=== PATIENT | male | born 1955 | race Caucasian/White ===

== ENCOUNTER 2016-09-11 09:58 | Emergency (ER) | payer OTHER ==
[2016-09-11 10:43] VITALS: BP 119/71
[2016-09-11] MEDS ORDERED: Tetan/Diph/Pertus SYR(Tdap)* 0.5 ML SYR(BOOSTRIX) use SYR IM ONE (11:54)
--- NOTE | 2016-09-11 11:55 | UC ---
Skin Complaint HPI - HPI Summary HPI Summary: The patient comes in today for: 1. Right elbow redness, swelling and tenderness: Onset: 10 days ago. The swelling "just popped up over night." It was not red at that time. Palliative/provocative: Touching does not affect it. Quality: No pain. Region: Right elbow. Severity: 0/10 Time: Constant. Associated symptoms: Home treatment: He burned a "hat needle" over the stove and poked the swelling. He initially did this about one week ago. He did a second time about 5 days ago. Each time he got fluid out which was "a light green." Fevers: None Injury: He states that he "beats around all the time." He does not remember any particular injury that precipitated this. Tetanus; He does not know when his last one was. The patient states that he had rectal bleeding at one time and at that time, he was told to not use blood thinners. He has ever since refused to take any NSAIDS. * - History of Current Complaint Chief Complaint: UCUpperExtremity Time Seen by Provider: 09/11/16 11:48 Stated Complaint: RED SWOLLEN ELBOW Hx Obtained From: Patient - Allergy/Home Medications Allergies/Adverse Reactions: Allergies Allergy/AdvReac Type Severity Reaction Status Date / Time No Known Allergies Allergy Verified 09/11/16 10:30 Home Medications: Home Medications Albuterol HFA INHALER* [Ventolin HFA Inhaler*] 2 puff PRN 09/11/16 [History] Budesonide/Formote 80/4.5(NF) [Symbicort 80/4.5 (NF)] 2 puff BID 09/11/16 [ History Confirmed 09/11/16] Hydrochlorothiazide TAB* [Hydrodiuril TAB*] 12.5 mg QPM 09/11/16 [History Confirmed 09/11/16] Tiotropium CAP.INH* [Spiriva CAP.INH*] 1 cap QPM 09/11/16 [History Confirmed ] Review of Systems Constitutional: Negative Skin: Rash Eyes: Negative ENT: Negative Respiratory: Negative Cardiovascular: Negative Gastrointestinal: Negative Genitourinary: Negative All Other Systems Reviewed And Are Negative: Yes PMH/Surg Hx/FS Hx/Imm Hx Previously Healthy: No - Chronic pain of the back and shoulder. Pt states that he does not take NSAI Endocrine History Of: Denies: Diabetes, Thyroid Disease, Hyperthyroidism, Hypothyroidism, Dyslipidemia Cardiovascular History Of: Reports: Hypertension - CONTROL WITH MED Denies: Cardiac Disorders, Pacemaker/ICD, Myocardial Infarction, Congestive Heart Failure, Atrial Fibrillation, Deep Vein Thrombosis, Bleeding Disorders Respiratory History Of: Reports: COPD Denies: Asthma, Bronchitis, Pneumonia, Pulmonary Embolism GI/ History Of: Denies: Gastroesophageal Reflux, Ulcer, Gastrointestinal Bleed, Gall Bladder Disease, Kidney Stones, Diverticulitis, Renal Disease, Urosepsis Neurological History Of: Denies: TIA, CVA, Dementia, Seizures, Migraine Psychological History Of: Denies: Anxiety, Depression, Bipolar Disorder, Schizophrenia, Post Traumatic Stress Disorder Cancer History Of: Denies: Lung Cancer, Colorectal Cancer, Breast Cancer, Prostate Cancer, Cervical Cancer Other History Of: Negative For: HIV, Hepatitis B, Hepatitis C, Anticoagulant Therapy - Surgical History Surgical History: Yes Surgery Procedure, Year, and Place: 2 surgeries on rectum one for a cyst,1973, also one year later for a fistula. surgery on foot when 12. Lt SHOULDER - ROTATOR CUFF- 10/20/12. Lt ANKLE - REPAIR/FX - W/ PIN PLACED & REMOVED - MANY YRS AGO - Family History Known Family History: Positive: Hypertension, Diabetes Negative: Cardiac Disease - Social History Occupation: Employed Part-time Alcohol Use: None Substance Use Type: Prescribed Smoking Status (MU): Heavy Every Day Tobacco Smoker Type: Cigarettes Amount Used/How Often: 1 PPD Length of Time of Smoking/Using Tobacco: 50 YEARS Have You Smoked in the Last Year: Yes Household Exposure Type: Cigarettes - Immunization History Most Recent Influenza Vaccination: Never Physical Exam Triage Information Reviewed: Yes Appearance: Well-Appearing, No Pain Distress, Well-Nourished Vital Signs: Initial Vital Signs Temp 97.8 F 09/11/16 10:35 Pulse 68 09/11/16 10:35 Resp 18 09/11/16 10:35 BP 119/71 09/11/16 10:35 Pulse Ox 98 09/11/16 10:35 Vital Signs Reviewed: Yes Eyes: Positive: Conjunctiva Clear. Negative: Discharge ENT: Positive: Hearing grossly normal. Negative: Pharyngeal erythema, Nasal congestion, Nasal drainage, TM bulging, TM dull, TM red, Tonsillar swelling, Tonsillar exudate Dental: Negative: Gross Decay/Caries @, Dental Fracture @ Neck: Negative: Supple, Nontender, No Lymphadenopathy, Nuchal Rigidity Respiratory: Positive: Lungs clear, No respiratory distress, No accessory muscle use. Negative: Crackles, Wheezing Cardiovascular: Positive: RRR, No Murmur Abdomen Description: Positive: Nontender, No Organomegaly, Soft. Negative: Distended, Guarding Musculoskeletal: Positive: Strength Intact, ROM Intact, Other: - Right elbow: Olecranon bursa with effusion. No tenderness, but it is warm and red. The puncture sites is present and scabbed. Neurological: Positive: Alert, Muscle Tone Normal Psychological: Positive: Age Appropriate Behavior, Consolable Skin: Negative: rashes, breakdown Diagnostics - Laboratory Diagnostic Studies Completed/Ordered: The fluid coming out of the right olecranon bursa was not purulent appearing--but straw-colored. Course/Dx - Course Course Of Treatment: After performing a time out, the patient had less than 1 cc of 2% lidocaine with epi instilled in the skin overlying the right olecranon bursa. It was cleansed x 3 with betadiene and with an 18 guage needle and 30 cc syringe, the olcranon bursa was drained. It had a steril Telfa pad and guaze applied with Coban. The fluid was sent for culture. - Differential Diagnoses - Skin Complaint Differential Diagnoses: Cellulitis, Eczema - Diagnoses Provider Diagnoses: Right olecranon bursitis (rule out infected) Discharge - Discharge Plan Condition: Stable Disposition: HOME Patient Education Materials: Elbow Bursitis (ED) Referrals: Jay Chu MD [Primary Care Provider] - 1 Week (Please contact your primary care provider's office as soon as you get out today for an appointment early next week to see how well you are doing. Keep the compressive bandage on as long as you can--preferablly until you see your primary care provider. Avoid injury to this elbow. If you have any increasing problems (swelling, redness, tenderness, fever), please be seen at that time through your family doctor, us or the ER.) Additional Instructions: Take the antibiotic until gone or told that the culture was negative. Call our office in 3 days to check on the culture. If the final report is normal, you may stop the antibiotics.
[2016-09-11] MEDS ORDERED: Lidocaine 2% W/EPI 1:100,000* 20 ML MDV ONE (12:13)
== END 2016-09-11 13:20 | disposition home or self-care (01) ==
LOC: UCEAST 09:58
DX: M70.21 Olecranon bursitis, right elbow (principal); F17.210 Nicotine dependence, cigarettes, uncomplicated; I10 Essential (primary) hypertension; J44.9 Chronic obstructive pulmonary disease, unspecified; Z23 Encounter for immunization
CPT/HCPCS: 20605; 87070; 87205; 90471; 90715; 99212; G0463

== ENCOUNTER 2016-09-13 08:50 | Emergency (ER) | payer OTHER ==
[2016-09-13 09:14] VITALS: BP 118/69
--- NOTE | 2016-09-13 09:37 | RAD ---
INDICATION: Olecranon bursitis COMPARISON: None TECHNIQUE: AP, lateral, and oblique views were obtained. FINDINGS: There are no acute osseous findings. There is prominent soft tissue density in the region of olecranon bursa compatible with olecranon bursitis.. IMPRESSION: OLECRANON BURSITIS
--- NOTE | 2016-09-13 13:02 | UC ---
Caleb Correa Matthew, [facility] on 09/13/16 at 1025 . Elbow Pain - HPI Summary HPI Summary: Nurse's Note: Right elbow complaint. Elbow effusion x 2 weeks, had the elbow drained and given Keflex 500mg BID, felt the elbow, "start swelling," again last night. Reports right hand/arm numbness. Patient reports pain on both sides of the elbow. Patient does have ROM in the right elbow. Note: Vital signs stable, Temp 98, pulse oxygen 100%, 5/10 pain when flexing and bending, distal numbness and tingling, no alcohol, heavy smoker. On 09/11, culture no growth after one day. The patient is on Keflex. In Room Note: A 60 y/o male presents to [facility] with right elbow pain since 2 weeks ago. The patient was seen two days ago in [facility] and had the elbow drained. At that time, he was started on 500mg Keflex BID. Last night, the elbow began to swell again. Associated symptoms include erythema, swelling, and distal numbness. The pain is worse with flexing and bending of the elbow. The patient drained the effusion twice on his own with a hat needle, which alleviated the pain. The pain is similar in intensity and erythema to his previous visit. The patient last saw his PCP in July. He has been hospitalized in the past for respiratory related complaints. The patient is a hammond and right hand dominate. FHx of Diabetes. The patient's on 30mg of oxycodone for shoulder pain control. - History of Current Complaint Chief Complaint: UCUpperExtremity Stated Complaint: RT ELBOW COMPLAINT Time Seen by Provider: 09/13/16 09:17 Hx Obtained From: Patient Onset/Duration: Weeks, Atraumatic, Still Present Severity Initially: Moderate Severity Currently: Moderate Pain Intensity: 5 Pain Scale Used: 0-10 Numeric Location Of Pain: Is Discrete @ - RT elbow Aggravating Factor(s): Movement Associated Signs And Symptoms: Positive: Swelling, Redness, Numbness/Tingling - distally - Allergies/Home Medications Allergies/Adverse Reactions: Allergies Allergy/AdvReac Type Severity Reaction Status Date / Time No Known Allergies Allergy Verified 09/11/16 10:30 PMH/Surg Hx/FS Hx/Imm Hx Endocrine History Of: Denies: Diabetes, Thyroid Disease, Hyperthyroidism, Hypothyroidism, Dyslipidemia Cardiovascular History Of: Reports: Hypertension - CONTROL WITH MED Denies: Cardiac Disorders, Pacemaker/ICD, Myocardial Infarction, Congestive Heart Failure, Atrial Fibrillation, Deep Vein Thrombosis, Bleeding Disorders Respiratory History Of: Reports: COPD Denies: Asthma, Bronchitis, Pneumonia, Pulmonary Embolism GI/ History Of: Denies: Gastroesophageal Reflux, Ulcer, Gastrointestinal Bleed, Gall Bladder Disease, Kidney Stones, Diverticulitis, Renal Disease, Urosepsis Neurological History Of: Denies: TIA, CVA, Dementia, Seizures, Migraine Psychological History Of: Denies: Anxiety, Depression, Bipolar Disorder, Schizophrenia, Post Traumatic Stress Disorder Cancer History Of: Denies: Lung Cancer, Colorectal Cancer, Breast Cancer, Prostate Cancer, Cervical Cancer Other History Of: Negative For: HIV, Hepatitis B, Hepatitis C, Anticoagulant Therapy - Surgical History Surgical History: Yes Surgery Procedure, Year, and Place: 2 surgeries on rectum one for a cyst,1973, also one year later for a fistula. surgery on foot when 12. Lt SHOULDER - ROTATOR CUFF- 10/20/12. Lt ANKLE - REPAIR/FX - W/ PIN PLACED & REMOVED - MANY YRS AGO - Family History Known Family History: Positive: Hypertension, Diabetes Negative: Cardiac Disease - Social History Alcohol Use: None Substance Use Type: None Smoking Status (MU): Heavy Every Day Tobacco Smoker Type: Cigarettes Amount Used/How Often: 1 PPD Length of Time of Smoking/Using Tobacco: 50 YEARS Have You Smoked in the Last Year: Yes Household Exposure Type: Cigarettes - Immunization History Most Recent Influenza Vaccination: Never Review of Systems Constitutional: Negative Skin: Other - erythema at the elbow Eyes: Negative ENT: Negative Respiratory: Negative Cardiovascular: Negative Gastrointestinal: Negative Genitourinary: Negative Motor: Negative Neurovascular: Negative Musculoskeletal: Arthralgia - right elbow, Edema, Myalgia - bilateral shoulder pain from previous rotator cuff injuries Neurological: Numbness - distal of the right elbow Psychological: Negative All Other Systems Reviewed And Are Negative: Yes Physical Exam Triage Information Reviewed: Yes Appearance: Well-Appearing, No Pain Distress, Well-Nourished Vital Signs: Initial Vital Signs Temp 98 F 09/13/16 09:04 Pulse 94 09/13/16 09:04 Resp 18 09/13/16 09:04 BP 118/69 09/13/16 09:04 Pulse Ox 100 09/13/16 09:04 Vital Signs Reviewed: Yes Eyes: Positive: Conjunctiva Clear ENT: Positive: Hearing grossly normal, Pharynx normal, TMs normal. Negative: Muffled/hoarse voice Neck: Positive: Supple, Nontender Respiratory: Positive: Chest non-tender, No respiratory distress, Other: - Distant breath sounds Cardiovascular: Positive: RRR, No Murmur Abdomen Description: Positive: Nontender, Soft Bowel Sounds: Positive: Present Musculoskeletal: Positive: Other: - GOLF BALL SIZED AREA OF BURSITIS, WHICH IS ERYTHEMATOUS; no obvious ascending cellulitis or lymphangitis; good circulation ; sensory and motor sensation distally intact; both shoulders are painful with movement from rotator cuff injuries Neurological: Positive: Muscle Tone Normal Psychological: Positive: Age Appropriate Behavior Diagnostics - Radiology RT Elbow XR Xray Interpretation: Positive (See Comments) - IMPRESSION: OLECRANON BURSITIS Radiology Interpretation Completed By: Radiologist Elbow Pain Course/Dx - Differential Dx/Diagnosis Provider Diagnoses: olecronon bursitis, right elbow. after one day: culture negative Discharge - Discharge Plan Condition: Stable Disposition: HOME Patient Education Materials: Elbow Bursitis Exercises (GEN), Elbow Bursitis (ED ) Referrals: Jay Chu MD [Primary Care Provider] - Additional Instructions: WE DISCUSSED: You have bursitis over the tip of your elbow. So far there are no signs of infection inside the area of swelling. Continue taking the Keflex. Warm moist heat to area for 5-10 minutes 8 times a day. Antibiotic cream to area. Teddy wrap. Re check with your doctor next week. First, let's get rid of the redness; then we will deal with the swelling that keeps coming back. The documentation as recorded by the Caleb estevez Matthew accurately reflects the service I personally performed and the decisions made by me, Mekhi Dao MD.
== END 2016-09-13 10:50 | disposition home or self-care (01) ==
LOC: UCEAST 08:50
DX: M70.21 Olecranon bursitis, right elbow (principal); F17.290 Nicotine dependence, other tobacco product, uncomplicated
CPT/HCPCS: 99212; G0463

== ENCOUNTER 2017-06-21 11:43 | Emergency (ER) | payer BC, OTHER ==
[2017-06-21 12:23] VITALS: BP 137/61
[2017-06-21] MEDS ORDERED: Albuterol/Ipratropium NEB.SOL* Albuterol 2.5 MG/Ipratropium 0.5 MG 3 ML INH ONE (12:46)
--- NOTE | 2017-06-21 14:26 | UC ---
Throat Pain/Nasal Beto HPI - HPI Summary HPI Summary: FOUR DAYS OF PRODUCTIVE COUGH, FEVER, SINUS PRESSURE AND CONGESTION. - History of Current Complaint Chief Complaint: UCGeneralIllness Stated Complaint: URI Time Seen by Provider: 06/21/17 12:38 Hx Obtained From: Patient Onset/Duration: Gradual Onset, Lasting Days Severity: Moderate Pain Intensity: 0 Pain Scale Used: 0-10 Numeric - Allergies/Home Medications Allergies/Adverse Reactions: Allergies Allergy/AdvReac Type Severity Reaction Status Date / Time No Known Allergies Allergy Verified 06/21/17 12:14 PMH/Surg Hx/FS Hx/Imm Hx Previously Healthy: Yes Other History Of: Negative For: HIV, Hepatitis B, Hepatitis C, Anticoagulant Therapy - Surgical History Surgical History: Yes Surgery Procedure, Year, and Place: 2 surgeries on rectum one for a cyst,1973, also one year later for a fistula. surgery on foot when 12. Lt SHOULDER - ROTATOR CUFF- 10/20/12. Lt ANKLE - REPAIR/FX - W/ PIN PLACED & REMOVED - MANY YRS AGO - Family History Known Family History: Positive: Hypertension, Diabetes Negative: Cardiac Disease - Social History Occupation: Employed Full-time Lives: With Family Alcohol Use: None Substance Use Type: None Smoking Status (MU): Heavy Every Day Tobacco Smoker Type: Cigarettes Amount Used/How Often: 1 PPD Length of Time of Smoking/Using Tobacco: 50 YEARS Have You Smoked in the Last Year: Yes Household Exposure Type: Cigarettes Cessation Counseling: Patient Advised to Stop - Immunization History Most Recent Influenza Vaccination: Never Review of Systems Constitutional: Fever Skin: Negative Eyes: Negative ENT: Sinus Congestion Respiratory: Cough Cardiovascular: Negative Gastrointestinal: Negative Genitourinary: Negative Motor: Negative Neurovascular: Negative Musculoskeletal: Negative Neurological: Negative Psychological: Negative Is Patient Immunocompromised?: No All Other Systems Reviewed And Are Negative: Yes Physical Exam Triage Information Reviewed: Yes Appearance: Well-Appearing, No Pain Distress, Well-Nourished Vital Signs: Initial Vital Signs Temp 99.9 F 06/21/17 12:10 Pulse 80 06/21/17 12:10 Resp 18 06/21/17 12:10 BP 137/61 06/21/17 12:10 Pulse Ox 97 06/21/17 12:10 Vital Signs Reviewed: Yes Eye Exam: Normal ENT: Positive: Nasal congestion, Nasal drainage Dental Exam: Normal Neck exam: Normal Respiratory Exam: Other - COUGH Respiratory: Positive: Chest non-tender, Lungs clear, Normal breath sounds, No respiratory distress, No accessory muscle use Cardiovascular Exam: Normal Cardiovascular: Positive: RRR, No Murmur, Pulses Normal Abdominal Exam: Normal Abdomen Description: Positive: Nontender, No Organomegaly Musculoskeletal Exam: Normal Musculoskeletal: Positive: Strength Intact, ROM Intact Neurological Exam: Normal Psychological Exam: Normal Skin Exam: Normal Throat Pain/Nasal Course/Dx - Differential Dx/Diagnosis Differential Diagnosis/HQI/PQRI: Sinusitis, URI Provider Diagnoses: SINUSITIS; BRONCHITIS Discharge - Discharge Plan Condition: Stable Disposition: HOME Prescriptions: DOXYcycline CAP(*) [DOXYcycline 100MG CAP(*)] 100 mg PO BID #20 cap Patient Education Materials: Sinusitis (ED), Acute Bronchitis (ED) Referrals: Jay Chu MD [Primary Care Provider] -
== END 2017-06-21 13:30 | disposition home or self-care (01) ==
LOC: UCEAST 11:43
DX: J32.9 Chronic sinusitis, unspecified (principal); J40 Bronchitis, not specified as acute or chronic; F17.210 Nicotine dependence, cigarettes, uncomplicated
CPT/HCPCS: 99212; A9270-GY; G0463

== ENCOUNTER 2017-06-30 09:55 | Emergency (ER) | payer OTHER ==
--- NOTE | 2017-06-30 11:01 | UC ---
Respiratory Complaint HPI - HPI Summary HPI Summary: Pt presents with sinus congestion, cough, and chest congestion. He was seen here on 06/20 for sinus symptoms and a mild cough at that time. He was prescribed doxycycline and has taken it for 10 days without any relief of his symptoms. Today he tells me that his sinus congestion/pain/pressure are still present and his cough has worsened. He is now coughing more and has a productive sputum of green and yellow color. Denies fever, chills, SOB, chest pain, ST, abdominal pain, N/V/D/C - History of Current Complaint Chief Complaint: UCRespiratory Stated Complaint: BRONCHITIS Time Seen by Provider: 06/30/17 10:59 Hx Obtained From: Patient Onset/Duration: Gradual Onset Timing: Constant Severity Initially: Mild Severity Currently: Moderate Alleviating Factors: Bronchodilator - Allergies/Home Medications Allergies/Adverse Reactions: Allergies Allergy/AdvReac Type Severity Reaction Status Date / Time No Known Allergies Allergy Verified 06/30/17 10:10 PMH/Surg Hx/FS Hx/Imm Hx Previously Healthy: Yes Cardiovascular History: Hypertension Respiratory History: COPD Other History Of: Negative For: HIV, Hepatitis B, Hepatitis C, Anticoagulant Therapy - Surgical History Surgical History: Yes Surgery Procedure, Year, and Place: 2 surgeries on rectum one for a cyst,1973, also one year later for a fistula. surgery on foot when 12. Lt SHOULDER - ROTATOR CUFF- 10/20/12. Lt ANKLE - REPAIR/FX - W/ PIN PLACED & REMOVED - MANY YRS AGO - Family History Known Family History: Positive: Hypertension, Diabetes Negative: Cardiac Disease - Social History Lives: With Family Alcohol Use: None Substance Use Type: None Smoking Status (MU): Heavy Every Day Tobacco Smoker Type: Cigarettes Amount Used/How Often: 1 PPD Length of Time of Smoking/Using Tobacco: 50 YEARS Have You Smoked in the Last Year: Yes Household Exposure Type: Cigarettes Cessation Counseling: Counseled 3+Min - 10 Min - Immunization History Most Recent Influenza Vaccination: NOT UTD Review of Systems Constitutional: Negative Skin: Negative Eyes: Negative ENT: Nasal Discharge, Sinus Congestion, Sinus Pain/Tenderness Respiratory: Cough Cardiovascular: Negative Gastrointestinal: Negative All Other Systems Reviewed And Are Negative: Yes Physical Exam Triage Information Reviewed: Yes Appearance: Well-Appearing, Well-Nourished Vital Signs: Initial Vital Signs Temp 98.7 F 06/30/17 10:06 Pulse 82 06/30/17 10:06 Resp 20 06/30/17 10:06 BP 131/73 06/30/17 10:06 Pulse Ox 97 06/30/17 10:06 Vital Signs Reviewed: Yes Eyes: Positive: Conjunctiva Clear. Negative: Conjunctiva Inflamed, Discharge ENT: Positive: Hearing grossly normal, Pharynx normal, Nasal congestion, Nasal drainage, TMs normal, Sinus tenderness, Uvula midline. Negative: Pharyngeal erythema, TM bulging, TM dull, TM red, Tonsillar swelling, Tonsillar exudate Neck: Positive: Supple, Nontender, No Lymphadenopathy Respiratory: Positive: Chest non-tender, No respiratory distress, No accessory muscle use, Decreased breath sounds - Throughout, Wheezing - Throughout. Negative: Crackles, Rhonchi Cardiovascular: Positive: RRR, Pulses Normal Neurological: Positive: Alert. Negative: Fatigued Psychological: Positive: Age Appropriate Behavior Skin: Negative: rashes UC Diagnostic Evaluation - Laboratory O2 Sat by Pulse Oximetry: 97 Re-Evaluation - Re-Evaluation First Eval Re-Evaluation Time: 12:00 Change: Improved Comment: Lung sounds significantly improved after duoneb. Still with scattered wheezing and some decreased breath sounds throughout - but overall improved. Pt experienced mild relief and felt like he was able to breathe bart.r Respiratory Course/Dx - Course Course Of Treatment: CXR - IMPRESSION: Chronic pleural changes likely representing atelectasis in the left costophrenic angle. No definite pneumonia is identified. Duoneb - Lung sounds significantly improved after duoneb. Still with scattered wheezing and some decreased breath sounds throughout - but overall improved. Pt experienced mild relief and felt like he was able to breathe better. Suspect bronchitis vs COPD exacerbation. Will rx for prednisone 40mg x7days. Continue at home inhalers. F/u with PCP in 1-2weeks - Differential Dx/Diagnosis Differential Diagnosis/HQI/PQRI: Bronchitis, Exacerbation Of COPD, Lower Resp Infection, Sinusitis Provider Diagnoses: COPD exacerbation. Sinusitis Discharge - Discharge Plan Condition: Stable Disposition: HOME Prescriptions: predniSONE TAB* [Deltasone TAB*] 40 mg PO DAILY #28 tab Patient Education Materials: Sinusitis (ED), COPD (Chronic Obstructive Pulmonary Disease) (ED) Referrals: Jay Chu MD [Primary Care Provider] - Additional Instructions: If you develop a fever, SOB, chest pain, new or worsening symptoms - please call your PCP or go to the ED. Please schedule a follow up with your PCP in 1-2weeks regarding your cough and SOB. 1) Continue using your at home inhalers as prescribed. 2) Take four 10mg tablets of prednisone daily for seven days
--- NOTE | 2017-06-30 11:37 | RAD ---
Indication: Cough. 2 views of the chest including dual energy PA views demonstrates hyperinflated lung tran. Chronic pleural changes are noted in the left costophrenic angle. When compared to previous exam of October 01, 2015 this finding is new. IMPRESSION: Chronic pleural changes likely representing atelectasis in the left costophrenic angle. No definite pneumonia is identified.
[2017-06-30] MEDS ORDERED: Albuterol/Ipratropium NEB.SOL* Albuterol 2.5 MG/Ipratropium 0.5 MG 3 ML INH ONE (11:40)
[2017-06-30 11:58] VITALS: BP 118/71
== END 2017-06-30 12:19 | disposition home or self-care (01) ==
LOC: UCEAST 09:55
DX: J44.1 Chronic obstructive pulmonary disease with (acute) exacerbation (principal); J32.9 Chronic sinusitis, unspecified; I10 Essential (primary) hypertension; F17.210 Nicotine dependence, cigarettes, uncomplicated
CPT/HCPCS: 71020; 99212; A9270-GY; G0463

== ENCOUNTER 2017-08-13 17:13 | Emergency (ER) | payer OTHER ==
[2017-08-13] MEDS ORDERED: NS 0.9% 1000 ML* 1,000 ML IV ONE (19:43)
[2017-08-13] MEDS ORDERED: Dexamethasone IV* 4 MG/ML 5 ML VIAL (20 MG) IVPB ONE (19:44)
[2017-08-13] MEDS ORDERED: Albuterol/Ipratropium NEB.SOL* Albuterol 2.5 MG/Ipratropium 0.5 MG 3 ML INH ONE (19:44)
[2017-08-13 20:20] LABS: ABS Basophils 0.1 10^3/ul (0-0.2); ABS Eosinophils 0.1 10^3/ul (0-0.6); ABS Lymphocytes 2.1 10^3/ul (1.0-4.8); ABS Monocytes 0.8 10^3/ul (0-0.8); ABS Neutrophils 3.6 10^3/ul (1.5-7.7); ABS Nucleated RBC 0 10^3/ul; Eosinophil % 1.6 % (0-6); Hematocrit 44 % (42-52); Hemoglobin 15.3 g/dl (14.0-18.0); Lymphocyte % 31.9 % (25-47); Mean Corpuscular HGB Conc 34 g/dl (31-36); Mean Corpuscular Hemoglobin 31 pg (27-31); Mean Corpuscular Volume 91 fL (80-94); Mean Platelet Volume 8 um3 (7.4-10.4); Nucleated Red Blood Cells % 0.1; Platelet Count 235 10^3/ul (150-450); Red Blood Count 4.88 10^6/ul (4.0-5.4); Red Cell Distribution Width 13 % (10.5-15); White Blood Count 6.7 10^3/ul (3.5-10.8)
[2017-08-13 20:35] LABS: EGFR Non-African American 100.5 (>60)
--- NOTE | 2017-08-13 20:41 | RAD ---
Indication: Shortness of breath, failure to thrive. CT of the chest was performed without IV contrast. Coronal and sagittal reconstructed images were obtained. There is no mediastinal or hilar adenopathy noted. The heart demonstrates no pericardial effusion. The trachea and major bronchi appear patent. Lung tran demonstrate emphysematous changes without evidence of alveolar consolidation. No pleural fluid, pneumonia or pneumothorax is noted. Scarring is noted in the right lung base and inferior left lower lobe. No pleural fluid is identified. The visualized abdominal organs are unremarkable. No adrenal masses are noted. The kidneys demonstrate no focal masses. No hydronephrosis is noted. IMPRESSION: Emphysematous changes are noted. No focal masses are noted. Scarring is noted in the left lower lobe and right base posteriorly.
[2017-08-13 21:09] VITALS: BP 133/76
--- NOTE | 2017-08-14 06:57 | ED ---
Rashaun Correa Angela, scribed for Jose Roberto Hearn MD on 08/13/17 at 1946 . Shortness of Breath - HPI Summary HPI Summary: This pt is a 61 y/o male presenting to [facility] c/o SOB and lightheadedness for the past 4 months. Pt reports that he went to Urgent Care in May 2017 and was diagnosed with sinusitis and bronchitis. He was put on 40 mg of prednisone for 1 week. Pt also notes fatigue for the past 4 months. Pt states he saw his PCP 3 days ago and declined a flu vaccine. PMHx: COPD, HTN, chronic back and shoulder pain. He is currently taking medications for COPD, oxycodone for chronic pain, HTN medications. - History of Current Complaint Chief Complaint: EDShortnessOfBreath Time Seen by Provider: 08/13/17 19:33 Hx Obtained From: Patient Onset/Duration: Lasting Weeks, Still Present Current Severity: Moderate Aggrevating Factors: Nothing Alleviating Factors: Nothing - Allergy/Home Medications Allergies/Adverse Reactions: Allergies Allergy/AdvReac Type Severity Reaction Status Date / Time No Known Allergies Allergy Verified 06/30/17 10:10 PMH/Surg Hx/FS Hx/Imm Hx Endocrine/Hematology History: Reports: Hx Blood Transfusions - as child Denies: Hx Anticoagulant Therapy, Hx Diabetes, Hx Systemic Lupus Erythematosus, Hx Thyroid Disease Cardiovascular History: Reports: Hx Hypertension - CONTROL WITH MED Denies: Hx Congestive Heart Failure, Hx Deep Vein Thrombosis, Hx Myocardial Infarction, Hx Pacemaker/ICD Respiratory History: Reports: Hx Chronic Obstructive Pulmonary Disease (COPD), Other Respiratory Problems/Disorders Denies: Hx Asthma, Hx Lung Cancer, Hx Pneumonia, Hx Pulmonary Embolism GI History: Denies: Hx Gall Bladder Disease, Hx Gastrointestinal Bleed, Hx Ulcer, Hx Urosepsis Comment Only: Other GI Disorders - nathaly-anal cyst,fistula History: Denies: Hx Dialysis, Hx Kidney Stones, Hx Renal Disease Musculoskeletal History: Reports: Hx Arthritis - shoulders, Hx Back Problems - bone spurs, 5 deteriated discs, Hx Bursitis, Other Musculoskeletal History - bilat rotator cuff injuries Denies: Hx Rheumatoid Arthritis Sensory History: Reports: Hx Contacts or Glasses - GLASSES Denies: Hx Hearing Aid Opthamlomology History: Reports: Hx Contacts or Glasses - GLASSES Neurological History: Denies: Hx Dementia, Hx Migraine, Hx Seizures, Hx Transient Ischemic Attacks (TIA) Psychiatric History: Reports: Hx Substance Abuse - recovered alcoholic x 12 yrs Denies: Hx Anxiety, Hx Depression, Hx Panic Disorder, Hx Schizophrenia, Hx Bipolar Disorder - Cancer History Hx Chemotherapy: No - Surgical History Surgery Procedure, Year, and Place: 2 surgeries on rectum one for a cyst,1973, also one year later for a fistula. surgery on foot when 12. Lt SHOULDER - ROTATOR CUFF- 10/20/12. Lt ANKLE - REPAIR/FX - W/ PIN PLACED & REMOVED - MANY YRS AGO Hx Anesthesia Reactions: No Infectious Disease History: No Infectious Disease History: Denies: Hx Hepatitis, Hx Human Immunodeficiency Virus (HIV), History Other Infectious Disease, Traveled Outside the [place] in Last 30 Days - Family History Known Family History: Positive: Hypertension, Diabetes Negative: Cardiac Disease - Social History Alcohol Use: None Substance Use Type: Reports: None Hx Tobacco Use: Yes Smoking Status (MU): Heavy Every Day Tobacco Smoker Type: Cigarettes Amount Used/How Often: 1 PPD Length of Time of Smoking/Using Tobacco: 50 YEARS Have You Smoked in the Last Year: Yes Review of Systems Positive: Fatigue. Negative: Fever, Chills Positive: Shortness Of Breath Neurological: Other - POS: lightheadedness All Other Systems Reviewed And Are Negative: Yes Physical Exam - Summary Physical Exam Summary: Appearance: Well appearing, no pain distress Skin: warm, dry, reflects adequate perfusion Head/face: telangiectasia Eyes: EOMI, PERRL ENT: normal. Moist mucous membranes. Neck: supple, non-tender Respiratory: Diffuse expiratory wheezing with good aeration otherwise. No crackles. Cardiovascular: RRR, pulses symmetrical Abdomen: thin, non-tender, soft Bowel: present Musculoskeletal: normal, strength/ROM intact Neuro: normal, sensory motor intact, A&Ox3 Triage Information Reviewed: Yes Vital Signs On Initial Exam: Initial Vitals Temp Pulse Resp BP Pulse Ox 99.0 F 67 20 110/65 96 08/13/17 17:47 08/13/17 17:47 08/13/17 17:47 08/13/17 17:47 08/13/17 17:47 Vital Signs Reviewed: Yes Diagnostics - Vital Signs Vital Signs Temp Pulse Resp BP Pulse Ox 08/13/17 18:01 64 95 08/13/17 17:47 99.0 F 67 20 110/65 96 - Laboratory Lab Results: Lab Results 08/13/17 08/13/17 08/13/17 Range/Units 20:10 20:10 20:10 WBC 6.7 (3.5-10.8) 10^3/ul RBC 4.88 (4.0-5.4) 10^6/ul Hgb 15.3 (14.0-18.0) g/dl Hct 44 (42-52) % MCV 91 (80-94) fL MCH 31 (27-31) pg MCHC 34 (31-36) g/dl RDW 13 (10.5-15) % Plt Count 235 (150-450) 10^3/ul MPV 8 (7.4-10.4) um3 Neut % (Auto) 53.7 (38-83) % Lymph % (Auto) 31.9 (25-47) % Ross % (Auto) 12.0 H (1-9) % Eos % (Auto) 1.6 (0-6) % Baso % (Auto) 0.8 (0-2) % Absolute Neuts (auto) 3.6 (1.5-7.7) 10^3/ul Absolute Lymphs (auto) 2.1 (1.0-4.8) 10^3/ul Absolute Monos (auto) 0.8 (0-0.8) 10^3/ul Absolute Eos (auto) 0.1 (0-0.6) 10^3/ul Absolute Basos (auto) 0.1 (0-0.2) 10^3/ul Absolute Nucleated RBC 0 10^3/ul Nucleated RBC % 0.1 Sodium 138 (133-145) mmol/L Potassium 3.8 (3.5-5.0) mmol/L Chloride 102 (101-111) mmol/L Carbon Dioxide 29 (22-32) mmol/L Anion Gap 7 (2-11) mmol/L BUN 9 (6-24) mg/dL Creatinine 0.78 (0.67-1.17) mg/dL Est GFR ( Amer) 129.3 (>60) Est GFR (Non-Af Amer) 100.5 (>60) BUN/Creatinine Ratio 11.5 (8-20) Glucose 84 (70-100) mg/dL Lactic Acid (0.5-2.0) mmol/L Calcium 9.4 (8.6-10.3) mg/dL Total Bilirubin 0.50 (0.2-1.0) mg/dL AST 22 (13-39) U/L ALT 16 (7-52) U/L Alkaline Phosphatase 46 (34-104) U/L Troponin I 0.00 (<0.04) ng/mL B-Natriuretic Peptide 21 ( - 100) pg/mL Total Protein 6.5 (6.4-8.9) g/dL Albumin 4.0 (3.2-5.2) g/dL Globulin 2.5 (2-4) g/dL Albumin/Globulin Ratio 1.6 (1-3) TSH 2.42 (0.34-5.60) mcIU/mL 08/13/17 Range/Units 20:10 WBC (3.5-10.8) 10^3/ul RBC (4.0-5.4) 10^6/ul Hgb (14.0-18.0) g/dl Hct (42-52) % MCV (80-94) fL MCH (27-31) pg MCHC (31-36) g/dl RDW (10.5-15) % Plt Count (150-450) 10^3/ul MPV (7.4-10.4) um3 Neut % (Auto) (38-83) % Lymph % (Auto) (25-47) % Ross % (Auto) (1-9) % Eos % (Auto) (0-6) % Baso % (Auto) (0-2) % Absolute Neuts (auto) (1.5-7.7) 10^3/ul Absolute Lymphs (auto) (1.0-4.8) 10^3/ul Absolute Monos (auto) (0-0.8) 10^3/ul Absolute Eos (auto) (0-0.6) 10^3/ul Absolute Basos (auto) (0-0.2) 10^3/ul Absolute Nucleated RBC 10^3/ul Nucleated RBC % Sodium (133-145) mmol/L Potassium (3.5-5.0) mmol/L Chloride (101-111) mmol/L Carbon Dioxide (22-32) mmol/L Anion Gap (2-11) mmol/L BUN (6-24) mg/dL Creatinine (0.67-1.17) mg/dL Est GFR ( Amer) (>60) Est GFR (Non-Af Amer) (>60) BUN/Creatinine Ratio (8-20) Glucose (70-100) mg/dL Lactic Acid 0.8 (0.5-2.0) mmol/L Calcium (8.6-10.3) mg/dL Total Bilirubin (0.2-1.0) mg/dL AST (13-39) U/L ALT (7-52) U/L Alkaline Phosphatase (34-104) U/L Troponin I (<0.04) ng/mL B-Natriuretic Peptide ( - 100) pg/mL Total Protein (6.4-8.9) g/dL Albumin (3.2-5.2) g/dL Globulin (2-4) g/dL Albumin/Globulin Ratio (1-3) TSH (0.34-5.60) mcIU/mL Result Diagrams: 08/13/17 20:10 08/13/17 20:10 Lab Statement: Any lab studies that have been ordered have been reviewed, and results considered in the medical decision making process. - CT Chest CT CT Interpretation: Positive (See Comments) - IMPRESSION: Emphysematous changes are noted. No focal masses are noted. Scarring is noted in the left lower lobe and right base posteriorly. Dr. Hearn has reviewed this radiology report. CT Interpretation Completed By: Radiologist - EKG 2004 Cardiac Rate: Bradycardia EKG Rhythm: Sinus Bradycardia - at [address] Segment: Normal EKG Interpretation: Normal axis. Normal interval. Re-Evaluation - Re-Evaluation First Eval Re-Evaluation Time: 20:56 Comment: I reviewed the CT results with the pt. Course/Dx - Course Course Of Treatment: pt with fatigue, lingering SOB. Found to have COPD exacerbation. Labs benign. No infiltrates on CT. Some failure to thrive, but heavy smoker. No malignancy found in lung. No abd pain. F/U closely with PMD. - Diagnoses Provider Diagnoses: COPD exacerbation, Chronic fatigue Discharge - Discharge Plan Condition: Good Disposition: HOME Patient Education Materials: COPD (Chronic Obstructive Pulmonary Disease) (ED) Referrals: Jay Chu MD [Primary Care Provider] - Additional Instructions: Call your doctor in the morning for follow up. Return if worse, new symptoms or other concerns. You will need additional testing thru your doctor. Take medications as prescribed. The documentation as recorded by the Rashaun estevez Angela accurately reflects the service I personally performed and the decisions made by me, Jose Roberto Hearn MD.
== END 2017-08-13 21:08 | disposition home or self-care (01) ==
LOC: ED 17:13
DX: J44.1 Chronic obstructive pulmonary disease with (acute) exacerbation (principal); R53.82 Chronic fatigue, unspecified; R06.02 Shortness of breath; R42 Dizziness and giddiness; Z86.79 Personal history of other diseases of the circulatory system; F17.210 Nicotine dependence, cigarettes, uncomplicated
CPT/HCPCS: 36415; 71250; 80053; 83605; 83880; 84443; 84484; 85025; 93005; 94640; 96374; 99282; A9270-GY; J1100

== ENCOUNTER 2022-06-11 21:51 | Inpatient (IN) ==
[2022-06-11] MEDS ORDERED: Albuterol 0.5% CONC CONTINUOUS NEB.SOL 5 mg/ml 20 ml BOT INH ONE (21:57)
[2022-06-11] MEDS ORDERED: cefTRIAXone 1 gm/50 mL D5W 1 GM/50 ML BAG IV ONE (21:58)
[2022-06-11] MEDS ORDERED: Azithromycin 500 mg/250 ml NS 500 MG/250 ML BAG IVPB ONE (21:58)
[2022-06-11 22:11] LABS: ABS Lymphocytes 0.6 10^3/ul (1.0-4.8); ABS Monocytes 0.9 10^3/ul (0-0.8); ABS Neutrophils 9.1 10^3/ul (1.5-7.7); Eosinophil % 0.1 %; Hematocrit 44 % (42-52); Hemoglobin 14.8 g/dL (14.0-18.0); Lymphocyte % 5.3 %; Mean Corpuscular HGB Conc 34 g/dL (31-36); Mean Corpuscular Hemoglobin 33 pg (27-31); Mean Corpuscular Volume 97 fL (80-94); Mean Platelet Volume 7.1 fL (7.4-10.4); Platelet Count 370 10^3/uL (150-450); Red Blood Count 4.53 10^6 /uL (4.18-5.48); Red Cell Distribution Width 14 % (10-15); White Blood Count 10.5 10^3/uL (3.5-10.8)
[2022-06-11] MEDS ORDERED: Lidocaine 1% MPF 5 ML VIAL INJ ONE (22:19)
[2022-06-11 22:50] LABS: Albumin 3.6 g/dL (3.2-5.2); Albumin/Globulin Ratio 1.6 (1-3); Calcium 8.7 mg/dL (8.6-10.3); Globulin 2.2 g/dL (2-4); Potassium 4.2 mmol/L (3.5-5.0); Total Bilirubin 0.4 mg/dL (0.2-1.0); Total Protein 5.8 g/dL (6.4-8.9); eGFR CKD-EPI 102.2 (>60)
[2022-06-12] MEDS: Enoxaparin 40 MG/0.4 ML SYR SUBCUT SCH ×2 (00:10→21:38)
[2022-06-12] MEDS: Morphine ER 30 mg TAB ** extended release PO SCH ×3 (01:22→21:37)
[2022-06-12 01:25] LABS: High Sensitivity Troponin 1 Hr 1311 pg/mL (<20)
[2022-06-12] MEDS ORDERED: Albuterol HFA INHALER 8 gm MDI INH PRN (03:58)
[2022-06-12 06:51] LABS: Hematocrit 42 % (42-52); Hemoglobin 13.8 g/dL (14.0-18.0); Mean Corpuscular HGB Conc 33 g/dL (31-36); Mean Corpuscular Hemoglobin 32 pg (27-31); Mean Corpuscular Volume 97 fL (80-94); Mean Platelet Volume 6.9 fL (7.4-10.4); Platelet Count 273 10^3/uL (150-450); Red Blood Count 4.34 10^6 /uL (4.18-5.48); Red Cell Distribution Width 14 % (10-15); White Blood Count 4.1 10^3/uL (3.5-10.8)
[2022-06-12 06:57] LABS: Calcium 8.5 mg/dL (8.6-10.3); Potassium 4.4 mmol/L (3.5-5.0); eGFR CKD-EPI 109.2 (>60)
[2022-06-12 07:01] LABS: ABS Lymphocytes 0.2 10^3/ul (1.0-4.8); ABS Monocytes 0.2 10^3/ul (0-0.8); ABS Neutrophils 3.7 10^3/ul (1.5-7.7); Lymphocyte % 5.9 %
[2022-06-12] MEDS: FLUTICAS/UMECLI/VILANT 100-62.5-25 MDI (NF) INH SCH (07:19)
[2022-06-12] MEDS: Nicotine PATCH 21 MG/24 HR PATCH TRANSDERM SCH (08:45)
[2022-06-13 07:17] LABS: ABS Eosinophils 0.1 10^3/ul (0-0.6); ABS Lymphocytes 0.7 10^3/ul (1.0-4.8); ABS Monocytes 0.6 10^3/ul (0-0.8); ABS Neutrophils 4.8 10^3/ul (1.5-7.7); Hematocrit 45 % (42-52); Hemoglobin 14.7 g/dL (14.0-18.0); Lymphocyte % 11.7 %; Mean Corpuscular HGB Conc 33 g/dL (31-36); Mean Corpuscular Hemoglobin 32 pg (27-31); Mean Corpuscular Volume 97 fL (80-94); Mean Platelet Volume 7.1 fL (7.4-10.4); Platelet Count 296 10^3/uL (150-450); Red Blood Count 4.59 10^6 /uL (4.18-5.48); Red Cell Distribution Width 14 % (10-15); White Blood Count 6.2 10^3/uL (3.5-10.8)
[2022-06-13] MEDS: FLUTICAS/UMECLI/VILANT 100-62.5-25 MDI (NF) INH SCH (07:19)
[2022-06-13 07:47] LABS: Calcium 8.6 mg/dL (8.6-10.3); Potassium 4.3 mmol/L (3.5-5.0); eGFR CKD-EPI 107.9 (>60)
[2022-06-13] MEDS ORDERED: Senna TAB 8.6 mg TAB PO PRN (08:04)
[2022-06-13] MEDS: Morphine ER 30 mg TAB ** extended release PO SCH ×2 (09:47→21:15)
[2022-06-13] MEDS: Nicotine PATCH 21 MG/24 HR PATCH TRANSDERM SCH (09:50)
[2022-06-13] MEDS: Enoxaparin 40 MG/0.4 ML SYR SUBCUT SCH (21:20)
[2022-06-14 06:23] LABS: ABS Eosinophils 0.1 10^3/ul (0-0.6); ABS Lymphocytes 0.8 10^3/ul (1.0-4.8); ABS Monocytes 0.7 10^3/ul (0-0.8); ABS Neutrophils 4.1 10^3/ul (1.5-7.7); Eosinophil % 1.3 %; Hematocrit 48 % (42-52); Hemoglobin 16.1 g/dL (14.0-18.0); Lymphocyte % 14.1 %; Mean Corpuscular HGB Conc 34 g/dL (31-36); Mean Corpuscular Hemoglobin 32 pg (27-31); Mean Corpuscular Volume 96 fL (80-94); Mean Platelet Volume 7.2 fL (7.4-10.4); Nucleated Red Blood Cells % 0.1; Platelet Count 288 10^3/uL (150-450); Red Cell Distribution Width 14 % (10-15); White Blood Count 5.7 10^3/uL (3.5-10.8)
[2022-06-14 07:18] LABS: Calcium 8.6 mg/dL (8.6-10.3); Potassium 4.3 mmol/L (3.5-5.0); eGFR CKD-EPI 108.5 (>60)
[2022-06-14] MEDS: FLUTICAS/UMECLI/VILANT 100-62.5-25 MDI (NF) INH SCH (08:20)
[2022-06-14] MEDS: Morphine ER 30 mg TAB ** extended release PO SCH ×2 (09:13→21:02)
[2022-06-14] MEDS: Nicotine PATCH 21 MG/24 HR PATCH TRANSDERM SCH ×2 (09:21→14:42)
[2022-06-14] MEDS ORDERED: Polyethylene Glycol 3350 17 GM PACKET PO PRN (12:23)
[2022-06-14] MEDS: Magnesium Hydroxide LIQ 30 ML UDC PO PRN (14:27)
[2022-06-14] MEDS: Enoxaparin 40 MG/0.4 ML SYR SUBCUT SCH (21:05)
[2022-06-15] MEDS: FLUTICAS/UMECLI/VILANT 100-62.5-25 MDI (NF) INH SCH (07:37)
[2022-06-15] MEDS: Nicotine PATCH 21 MG/24 HR PATCH TRANSDERM SCH (08:52)
[2022-06-15] MEDS: Morphine ER 30 mg TAB ** extended release PO SCH ×2 (08:53→20:42)
[2022-06-15] MEDS: Magnesium Hydroxide LIQ 30 ML UDC PO PRN (20:49)
[2022-06-15] MEDS: Enoxaparin 40 MG/0.4 ML SYR SUBCUT SCH (20:49)
[2022-06-16 07:21] LABS: ABS Eosinophils 0.4 10^3/ul (0-0.6); ABS Lymphocytes 0.5 10^3/ul (1.0-4.8); ABS Monocytes 0.6 10^3/ul (0-0.8); ABS Neutrophils 3.9 10^3/ul (1.5-7.7); Hematocrit 48 % (42-52); Hemoglobin 15.9 g/dL (14.0-18.0); Lymphocyte % 9.7 %; Mean Corpuscular HGB Conc 34 g/dL (31-36); Mean Corpuscular Hemoglobin 32 pg (27-31); Mean Corpuscular Volume 97 fL (80-94); Mean Platelet Volume 7.7 fL (7.4-10.4); Platelet Count 266 10^3/uL (150-450); Red Blood Count 4.91 10^6 /uL (4.18-5.48); Red Cell Distribution Width 14 % (10-15); White Blood Count 5.5 10^3/uL (3.5-10.8)
[2022-06-16 07:41] LABS: Calcium 8.5 mg/dL (8.6-10.3); Magnesium 2.2 mg/dL (1.9-2.7); eGFR CKD-EPI 102.6 (>60)
[2022-06-16] MEDS: FLUTICAS/UMECLI/VILANT 100-62.5-25 MDI (NF) INH SCH (08:05)
[2022-06-16] MEDS: Morphine ER 30 mg TAB ** extended release PO SCH ×2 (10:02→21:15)
[2022-06-16] MEDS: Nicotine PATCH 21 MG/24 HR PATCH TRANSDERM SCH (10:03)
[2022-06-16] MEDS ORDERED: Albuterol/Ipratropium NEB.SOL (2.5/0.5 MG) 3 ML NEB.SOLN INH PRN (13:33)
[2022-06-16] MEDS: Albuterol/Ipratropium NEB.SOL (2.5/0.5 MG) 3 ML NEB.SOLN INH SCH (17:58)
[2022-06-16] MEDS: Budesonide NEB 0.5 MG/2 ML NEB.SOLN INH SCH (20:52)
[2022-06-16] MEDS: Enoxaparin 40 MG/0.4 ML SYR SUBCUT SCH (21:17)
[2022-06-17] MEDS: Albuterol/Ipratropium NEB.SOL (2.5/0.5 MG) 3 ML NEB.SOLN INH SCH ×3 (02:28→20:05)
[2022-06-17 06:27] LABS: ABS Eosinophils 0.3 10^3/ul (0-0.6); ABS Lymphocytes 0.5 10^3/ul (1.0-4.8); ABS Monocytes 0.5 10^3/ul (0-0.8); ABS Neutrophils 3.9 10^3/ul (1.5-7.7); Eosinophil % 6.2 %; Hematocrit 42 % (42-52); Hemoglobin 14.4 g/dL (14.0-18.0); Lymphocyte % 9.2 %; Mean Corpuscular HGB Conc 34 g/dL (31-36); Mean Corpuscular Hemoglobin 33 pg (27-31); Mean Corpuscular Volume 96 fL (80-94); Mean Platelet Volume 7.4 fL (7.4-10.4); Nucleated Red Blood Cells % 0.1; Platelet Count 229 10^3/uL (150-450); Red Cell Distribution Width 14 % (10-15); White Blood Count 5.3 10^3/uL (3.5-10.8)
[2022-06-17] MEDS: Budesonide NEB 0.5 MG/2 ML NEB.SOLN INH SCH ×2 (07:29→20:05)
[2022-06-17 07:40] LABS: Calcium 8.4 mg/dL (8.6-10.3); Potassium 4.5 mmol/L (3.5-5.0)
[2022-06-17] MEDS: Morphine ER 30 mg TAB ** extended release PO SCH ×2 (08:02→22:29)
[2022-06-17] MEDS: Nicotine PATCH 21 MG/24 HR PATCH TRANSDERM SCH (08:02)
[2022-06-17 10:23] LABS: HDL Cholesterol 45.1 mg/dL
[2022-06-17 10:52] LABS: eGFR CKD-EPI 103.6 (>60)
[2022-06-17] MEDS: Enoxaparin 40 MG/0.4 ML SYR SUBCUT SCH (22:31)
[2022-06-18 06:07] LABS: ABS Eosinophils 0.4 10^3/ul (0-0.6); ABS Lymphocytes 0.5 10^3/ul (1.0-4.8); ABS Monocytes 0.5 10^3/ul (0-0.8); ABS Neutrophils 3.1 10^3/ul (1.5-7.7); Eosinophil % 9.1 %; Hematocrit 42 % (42-52); Hemoglobin 13.6 g/dL (14.0-18.0); Lymphocyte % 11.3 %; Mean Corpuscular HGB Conc 33 g/dL (31-36); Mean Corpuscular Hemoglobin 32 pg (27-31); Mean Corpuscular Volume 96 fL (80-94); Mean Platelet Volume 7.5 fL (7.4-10.4); Platelet Count 213 10^3/uL (150-450); Red Blood Count 4.31 10^6 /uL (4.18-5.48); Red Cell Distribution Width 14 % (10-15); White Blood Count 4.5 10^3/uL (3.5-10.8)
[2022-06-18 07:03] LABS: Calcium 8.6 mg/dL (8.6-10.3); Magnesium 1.9 mg/dL (1.9-2.7); Potassium 4.8 mmol/L (3.5-5.0); eGFR CKD-EPI 102.6 (>60)
[2022-06-18] MEDS: Budesonide NEB 0.5 MG/2 ML NEB.SOLN INH SCH ×2 (08:00→19:54)
[2022-06-18] MEDS: Albuterol/Ipratropium NEB.SOL (2.5/0.5 MG) 3 ML NEB.SOLN INH SCH ×2 (08:01→19:54)
[2022-06-18] MEDS: Morphine ER 30 mg TAB ** extended release PO SCH ×2 (08:12→20:38)
[2022-06-18] MEDS: Nicotine PATCH 21 MG/24 HR PATCH TRANSDERM SCH (08:15)
[2022-06-18] MEDS: Magnesium Hydroxide LIQ 30 ML UDC PO PRN (08:59)
[2022-06-18] MEDS: Enoxaparin 40 MG/0.4 ML SYR SUBCUT SCH (21:47)
[2022-06-19] MEDS: Albuterol/Ipratropium NEB.SOL (2.5/0.5 MG) 3 ML NEB.SOLN INH SCH ×2 (06:57→19:45)
[2022-06-19] MEDS: Budesonide NEB 0.5 MG/2 ML NEB.SOLN INH SCH ×2 (06:58→19:45)
[2022-06-19] MEDS: Morphine ER 30 mg TAB ** extended release PO SCH ×2 (08:47→21:47)
[2022-06-19] MEDS: Nicotine PATCH 21 MG/24 HR PATCH TRANSDERM SCH (08:56)
[2022-06-19] MEDS: Enoxaparin 40 MG/0.4 ML SYR SUBCUT SCH (21:47)
[2022-06-20] MEDS: Budesonide NEB 0.5 MG/2 ML NEB.SOLN INH SCH ×2 (06:53→19:57)
[2022-06-20] MEDS: Albuterol/Ipratropium NEB.SOL (2.5/0.5 MG) 3 ML NEB.SOLN INH SCH ×2 (06:53→19:58)
[2022-06-20] MEDS: Morphine ER 30 mg TAB ** extended release PO SCH ×2 (07:58→21:14)
[2022-06-20] MEDS: Nicotine PATCH 21 MG/24 HR PATCH TRANSDERM SCH (07:59)
[2022-06-20] MEDS: Magnesium Hydroxide LIQ 30 ML UDC PO PRN (07:59)
[2022-06-20] MEDS: Enoxaparin 40 MG/0.4 ML SYR SUBCUT SCH (21:17)
[2022-06-21] MEDS: Albuterol/Ipratropium NEB.SOL (2.5/0.5 MG) 3 ML NEB.SOLN INH SCH ×2 (08:02→19:30)
[2022-06-21] MEDS: Budesonide NEB 0.5 MG/2 ML NEB.SOLN INH SCH ×2 (08:03→19:30)
[2022-06-21] MEDS: Morphine ER 30 mg TAB ** extended release PO SCH ×2 (08:32→19:50)
[2022-06-21] MEDS: Nicotine PATCH 21 MG/24 HR PATCH TRANSDERM SCH (08:34)
[2022-06-21 16:09] VITALS: BP 127/65
== END 2022-06-21 20:01 | disposition short-term general hospital (02) | DRG 199 ==
LOC: ED 21:51 → EDHOLD 21:51 → SUATTDRO 23:35 → EDHOLD 06-12 03:15 → SSU 06-12 04:02 → SUATTDRO 06-12 15:53
PROVIDERS: ADMIT Internal Medicine; ATTEND Internal Medicine